=== PATIENT | male | born 1945 | race Caucasian/White ===

== ENCOUNTER → 2018-09-19 | Day surgery (SDC) | payer MEDICARE ==
[2018-09-18 15:47] LABS: BASOPHILS # (AUTO) 0.1 (0.0-0.1); BASOPHILS % 0.9 % (0.0-1.0); EOSINOPHILS # (AUTO) 0.3 (0.0-0.4); HEMATOCRIT 37.3 % (38.2-49.6); HEMOGLOBIN 12.2 g/dL (14.0-18.0); LYMPHOCYTES # (AUTO) 1.1 (1.0-3.2); LYMPHOCYTES % 20.7 % (18.0-39.1); MEAN CORPUSCULAR HEMOGLOBIN 30.6 pg (28-32); MEAN CORPUSCULAR HGB CONC 32.7 g/dL (31-35); MEAN CORPUSCULAR VOLUME 93.5 fL (81-99); MONOCYTES # (AUTO) 0.6 (0.2-0.8); NEUTROPHILS # (AUTO) 3.3 (2.1-6.9); NEUTROPHILS % 61.8 % (38.7-80.0); PLATELET COUNT 228 x10e3/uL (140-360); RED BLOOD COUNT 3.99 x10e6/uL (4.3-5.7); RED CELL DISTRIBUTION WIDTH 12.2 % (11.7-14.4)
[~2018-09-19] MED LIST: AMIODARONE HCL200 MG PO; CITALOPRAM HBR20 MG PO; FENTANYL CITRATE/PF 100MCG/2 ML INJ ONE; NORCO 10-325 T1 EACH PO; PLAVIX75 MG PO; PRAVASTATIN SOD40 MG PO; PROPOFOL IV EMULSION 10 MG/ML 50 ML VIAL ONE; TRAZODONE HCL50 MG PO
--- OUTSIDE RECORDS SUMMARY | 2018-09-19 05:29 | XMS REPORT | Clinical Summary ---
Author Author [employer] Organization [employer] Address Unknown Phone Unavailable Care Team Providers Care Art Dealer Name Role Phone Rodrigue Hitchcock MD PCP Allergies No Known Allergies Medications End Date Status Medication Sig Dispensed Refills Start Date Active levothyroxine (SYNTHROID, TAKE ONE (1) 1 LEVOXYL) 150 mcg tablet TABLET(S) BY 9 MOUTH IN THE MORNING ON AN EMPTY STOMACH. Active oxyCODone-acetaminophen TAKE ONE (1) 0 (PERCOCET) 10-325 mg per TABLET(S) BY 9 tablet MOUTH EVERY SIX HOURS NEEDED FOR PAIN. Active pravastatin (PRAVACHOL) TAKE ONE (1) 0 40 MG tablet TABLET(S) BY 9 MOUTH ONCE A DAY. Active clopidogrel (PLAVIX) 75 Take 75 mg by 0 mg tablet mouth daily. Active folic acid (FOLVITE) 1 MG Take 1 mg by 0 tablet mouth daily. Active citalopram (CeleXA) 40 MG Take 40 mg by 0 tablet mouth daily. Active methotrexate 2.5 MG Take by mouth 0 tablet every 12 (twelve) hours for 3 (three) doses only each week. Active traZODone (DESYREL) 50 MG Take 50 mg by 0 tablet mouth nightly. Active amIODarone (PACERONE) 200 Take 200 mg 0 MG tablet by mouth daily. Active Problems Problem Noted Date Oropharyngeal dysphagia 08/21/2018 Esophageal dysphagia 08/21/2018 Encounters Care Team Description Date Type Specialty Adonay Mcpherson MD Oropharyngeal dysphagia (Primary Dx); Esophageal dysphagia 08/21/2018 Office Visit Otolaryngology Adonay Mcpherson MD Oropharyngeal dysphagia 08/10/2018 Hospital Radiology Encounter Adonay Mcpherson MD Oropharyngeal dysphagia (Primary Dx) 08/03/2018 Office Visit Otolaryngology after 09/18/2017 Social History Date Tobacco Use Types Packs/Day Years Used Never Smoker Smokeless Tobacco: Never Used Alcohol Use Drinks/Week oz/Week Comments No Alcohol Habits Answer Date Recorded How often do you have a drink containing alcohol? Never 08/03/2018 How many drinks containing alcohol do you have on Not asked a typical day when you are drinking? How often do you have six or more drinks on one Not asked occasion? Sex Assigned at Date Recorded Not on file Industry Job Start Date Occupation Not on file Not on file Not on file Travel End Travel History Travel Start No recent travel history available. Last Filed Vital Signs Time Taken Vital Sign Reading - Blood Pressure - - Pulse - - Temperature - - Respiratory Rate - - Oxygen Saturation - - Inhaled Oxygen - Concentration 08/21/2018 9:11 AM CDT Weight 86.6 kg (191 lb) 08/21/2018 9:11 AM CDT Height 177.8 cm (5' 10") 08/21/2018 9:11 AM CDT Body Mass Index 27.41 Plan of Treatment Health Maintenance Due Date Last Done Comments COLON CANCER SCREENING 1996 SHINGLES VACCINES (#1) 1996 65+ PNEUMOCOCCAL VACCINE 09/28/2011 (1 of 2 - PCV13) PNEUMOCOCCAL 09/28/2011 POLYSACCHARIDE VACCINE AGE 65 AND OVER INFLUENZA VACCINE 12/06/2018 Procedures Comments Procedure Name Priority Date/Time Associated Diagnosis FL MODIFIED BARIUM Routine 08/10/2018 Oropharyngeal dysphagia SWALLOW 10:36 AM CDT after 09/18/2017 Results * FL Modified Barium Swallow (08/10/2018 10:36 AM CDT) Narrative Performed At EXAMINATION:[place] MODIFIED BARIUM SWALLOW [facility] CLINICAL HISTORY:R13.12 Dysphagiaoropharyngeal phase, Dysphagia after XRT. COMPARISON:None. FINDINGS: The patient swallowed varying consistencies of barium under direct lateral fluoroscopic evaluation. The study was performed in conjunction with speech pathology. IMPRESSION: The patient swallowed each consistency without evidence of laryngeal penetration or aspiration. There is some mild flash penetration with straw drinking of ultra thin liquids. There was occasional pooling of contrast in the mid esophagus which cleared with a repeat water bolus. Please refer to Speech Pathology report for further details. Fluoroscopy time:3.5 minutes number of fluoroscopic images obtained: 1 [id number] Procedure Note Hm Interface, Radiology Results Incoming - 08/10/2018 10:51 AM CDT EXAMINATION: FL MODIFIED BARIUM SWALLOW CLINICAL HISTORY: R13.12 Dysphagia oropharyngeal phase, Dysphagia after XRT. COMPARISON: None. FINDINGS: The patient swallowed varying consistencies of barium under direct lateral fluoroscopic evaluation. The study was performed in conjunction with speech pathology. IMPRESSION: The patient swallowed each consistency without evidence of laryngeal penetration or aspiration. There is some mild flash penetration with straw drinking of ultra thin liquids. There was occasional pooling of contrast in the mid esophagus which cleared with a repeat water bolus. Please refer to Speech Pathology report for further details. Fluoroscopy time: 3.5 minutes number of fluoroscopic images obtained: 1 [id number] Performing Organization Address [facility] Phone [facility] [address] [place] [address] after 09/18/2017 Insurance Payer Benefit Subscriber ID Type Phone Address Plan / Group [employer] xxxxxxxxx [facility] Advance Directives Patient has advance care planning documents on file. For more information, balta almanzar contact: Kevin Colin [address] [place] [address]
--- OUTSIDE RECORDS SUMMARY | 2018-09-19 05:29 | XMS REPORT ---
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 Active Assessment Paroxysmal atrial fibrillation I48.0 Active Problem 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 Active Problem Atherosclerosis of [place] coronary artery, angina presence unspecified, unspecified whether [place] or transplanted heart I25.10 Active Problem Paroxysmal atrial fibrillation I48.0 Active Problem Hypothyroidism, unspecified type E03.9 Active Assessment Atherosclerosis of [place] artery of both lower extremities with intermittent claudication I70.213 Active Problem Post PTCA Z98.61 Active Problem Atheroscler-limb&claudic I70.219 Active Medications No Known Medications Results No Known Results Summary Purpose [employer] Submission
--- OUTSIDE RECORDS SUMMARY | 2018-09-19 05:29 | XMS REPORT ---
Author Author Rain Rodrigez Organization [employer] Address Unknown Phone Unavailable Care Team Providers Care Sap Pp Consultant Name Role Phone Rain Rodrigez CP Unavailable Allergies, Adverse Reactions, Alerts Substance Reaction Event Type N.K.D.A. 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 Active Problem Atherosclerosis of [place] coronary artery, angina presence unspecified, unspecified whether [place] or transplanted heart I25.10 Active Problem Paroxysmal atrial fibrillation I48.0 Active Problem Hypothyroidism, unspecified type E03.9 Active Assessment 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 Active Problem Post PTCA Z98.61 Active Problem Atheroscler-limb&claudic I70.219 Active Medications Medication Code System Code Instructions Start Date End Date Status Dosage Promethazine HCl [facility] 79738366409 25 MG Orally every 12 hrs Active 1 tablet as needed Omeprazole ND 57344581046 20 MG Orally Once a day Active 1 tablet Fluconazole ND 81890480992 150 MG Orally Active 1 tablet Pravastatin Sodium ND 62225704248 40 MG Orally Once a day Active 1 tablet Trazodone HCl ND 81083149584 50 MG Orally Once a day Active 1 tablet at bedtime as needed Levothyroxine Sodium ND 68626348316 75 MCG Orally Once a day Active 1 tablet Metoclopramide HCl ND 56826755653 5 MG Orally Active not defined Clopidogrel Bisulfate ND 51793932526 75 MG Orally Once a day Active 1 tablet Citalopram NDC 0 40 mg Active qd Xarelto [facility] 96946600148 20 MG Orally Once a day Active 1 tablet with food Ondansetron ND 68510813430 8 MG Orally Active not defined Amiodarone HCl [facility] 47238692973 200 MG Orally Once a day Active 1 tablet Hydrocodone-Acetaminophen [facility] 98003142872 10-325 MG Orally every 6 hrs Active 1 tablet as needed Vital Signs Date/Time: November 21, 2016 BMI 35.15 Index Weight 180 lbs Height 5'11 in Cardiac Monitoring Heart Rate 60 /min Blood Pressure Diastolic 72 mm Hg Blood Pressure Systolic 116 mm Hg Results No Known Results Summary Purpose [employer]Works Submission
--- OUTSIDE RECORDS SUMMARY | 2018-09-19 05:29 | XMS REPORT ---
Author Author Rain Rodrigez Organization [employer] Address Unknown Phone Unavailable Care Team Providers Care Panel Installer Name Role Phone Rain Rodrigez CP Unavailable Allergies, Adverse Reactions, Alerts Substance Reaction Event Type N.K.D.A. 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 Active Problem Atherosclerosis of [place] coronary artery, angina presence unspecified, unspecified whether [place] or transplanted heart I25.10 Active Problem Paroxysmal atrial fibrillation I48.0 Active Problem Hypothyroidism, unspecified type E03.9 Active Assessment Atherosclerosis of [place] coronary artery, angina presence unspecified, unspecified whether [place] or transplanted heart I25.10 Active Problem Post PTCA Z98.61 Active Problem Atheroscler-limb&claudic I70.219 Active Assessment Atheroscler-limb&claudic I70.219 Active Assessment Other symptoms involving cardiovascular system R09.89 Active Assessment Depression, unspecified depression type F32.9 Active Assessment Hypothyroidism, unspecified type E03.9 Active Medications Medication Code System Code Instructions Start Date End Date Status Dosage Metoclopramide HCl [facility] 05283401708 5 MG Orally Active not defined Levothyroxine Sodium ND 82993411372 75 MCG Orally Once a day Active 1 tablet Trazodone HCl ND 08891916904 50 MG Orally Once a day Active 1 tablet at bedtime as needed Citalopram NDC 0 40 mg Active qd Hydrocodone-Acetaminophen ND 44110969746 10-325 MG Orally every 6 hrs Active 1 tablet as needed Ondansetron ND 12523832515 8 MG Orally Active not defined Omeprazole ND 76939717249 20 MG Orally Once a day Active 1 tablet Clopidogrel Bisulfate ND 76367880852 75 MG Orally Once a day Active 1 tablet Amiodarone HCl [facility] 55397698406 200 MG Orally Once a day Active 1 tablet Promethazine HCl [facility] 18334131873 25 MG Orally every 12 hrs Active 1 tablet as needed Fluconazole [facility] 95951843673 150 MG Orally Active 1 tablet Pravastatin Sodium [facility] 26874064914 40 MG Orally Once a day Active 1 tablet Vital Signs Date/Time: August 01, 2016 BMI 34.17 Index Weight 175 lbs Height 5'11 in Cardiac Monitoring Heart Rate 60 /min Blood Pressure Diastolic 68 mm Hg Blood Pressure Systolic 120 mm Hg Results No Known Results Summary Purpose eClinicalWorks Submission
--- OUTSIDE RECORDS SUMMARY | 2018-09-19 05:29 | XMS REPORT ---
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
--- OUTSIDE RECORDS SUMMARY | 2018-09-19 05:29 | XMS REPORT ---
Author Author Rain Rodrigez Organization [employer] Address Unknown Phone Unavailable Care Team Providers Care Cook Chef Name Role Phone Rain Rodrigez CP Unavailable Allergies, Adverse Reactions, Alerts Substance Reaction Event Type N.K.D.A. 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 Active Problem Atherosclerosis of [place] coronary artery, angina presence unspecified, unspecified whether [place] or transplanted heart I25.10 Active Problem Paroxysmal atrial fibrillation I48.0 Active Problem Hypothyroidism, unspecified type E03.9 Active Assessment 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 Active Problem Post PTCA Z98.61 Active Problem Atheroscler-limb&claudic I70.219 Active Medications Medication Code System Code Instructions Start Date End Date Status Dosage Amiodarone HCl [facility] 42840213692 200 MG Orally Once a day Active 1 tablet Trazodone HCl [facility] 62324484352 50 MG Orally Once a day Active 1 tablet at bedtime as needed Omeprazole ND 57981888125 20 MG Orally Once a day Active 1 tablet Xarelto [facility] 29393539027 20 MG Orally Once a day August 15, 2016 Active 1 tablet with food Citalopram ND 0 40 mg Active qd Promethazine HCl ND 13612429197 25 MG Orally every 12 hrs Active 1 tablet as needed Pravastatin Sodium ND 62196896655 40 MG Orally Once a day Active 1 tablet Levothyroxine Sodium [facility] 42502963290 75 MCG Orally Once a day Active 1 tablet Metoclopramide HCl [facility] 84221668463 5 MG Orally Active not defined Hydrocodone-Acetaminophen [facility] 69777674168 10-325 MG Orally every 6 hrs Active 1 tablet as needed Ondansetron ND 17983173386 8 MG Orally Active not defined Clopidogrel Bisulfate NDC 17483954312 75 MG Orally Once a day Active 1 tablet Fluconazole [facility] 91743112592 150 MG Orally Active 1 tablet Vital Signs Date/Time: August 15, 2016 BMI 34.17 Index Weight 175 lbs Height 5'11 in Cardiac Monitoring Heart Rate 66 /min Blood Pressure Diastolic 68 mm Hg Blood Pressure Systolic 122 mm Hg Results No Known Results Summary Purpose [employer]ClinicalWorks Submission
--- OUTSIDE RECORDS SUMMARY | 2018-09-19 05:29 | XMS REPORT ---
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 Medications Medication Code System Code Instructions Start Date End Date Status Dosage Citalopram Hydrobromide ND 33828042973 40 MG Orally Once a day Active 0.5 tablet Prednisone Taper ND 95999809287 5mg Feb 09, 2018 Active 3 tablets for 5 days, 2 tablets for 5 days and then 1 tablet for 5 days Trazodone HCl ND 83812797341 50 MG Orally Once a day Active 1 tablet at bedtime as needed Amiodarone HCl ND 83729509501 200 MG Orally Once a day Active 1 tablet Hydrocodone-Acetaminophen ND 17064143728 7.5-325 MG Orally every 6 hrs Active 1 tablet as needed Folic Acid ND 53545572678 1 MG Orally Once a day Feb 27, 2018 September 29, 2018 Active 1 tablet Methotrexate (Anti-Rheumatic) NDC 0 2.5 MG Orally qwkly Feb 27, 2018 Active 8 tabs altogehter Pravastatin Sodium ND 30505267279 40 MG Orally Once a day Active 1 tablet Plavix ND 69525179968 75 MG Orally Once a day Active 1 tablet Vital Signs Date/Time: Apr 02, 2018 BMI 27 Index Weight 191 lbs Height 71 in Temperature 95.5 F Cardiac Monitoring Heart Rate 76 /min Blood Pressure Diastolic 72 mm Hg Blood Pressure Systolic 130 mm Hg Results No Known Results Summary Purpose eClinicalWorks Submission
--- OUTSIDE RECORDS SUMMARY | 2018-09-19 05:29 | XMS REPORT ---
Author Author Marie Andre [facility] eClinical[employer] Address Unknown Phone Unavailable Care Team Providers Care Cement Mason Name Role Phone Marie Andre CP Unavailable Allergies, Adverse Reactions, Alerts Substance Reaction Event Type demerol stomach upset Non Drug Allergy Problems Problem Type Condition Code Onset Dates Condition Status Assessment Inflammatory arthritis M19.90 Active Problem Inflammatory arthritis M19.90 Active Medications Medication Code System Code Instructions Start Date End Date Status Dosage Citalopram Hydrobromide [facility] 48234850707 40 MG Orally Once a day Active 0.5 tablet Amiodarone HCl [facility] 52646983253 200 MG Orally Once a day Active 1 tablet Plavix [facility] 14565846008 75 MG Orally Once a day Active 1 tablet Pravastatin Sodium [facility] 55180215872 40 MG Orally Once a day Active 1 tablet Trazodone HCl ND 66066884676 50 MG Orally Once a day Active 1 tablet at bedtime as needed Hydrocodone-Acetaminophen ND 24725958147 7.5-325 MG Orally every 6 hrs Active 1 tablet as needed Prednisone Taper ND 63126248581 5mg Feb 09, 2018 Active 3 tablets for 5 days, 2 tablets for 5 days and then 1 tablet for 5 days Vital Signs Date/Time: Feb 09, 2018 BMI 26.65 Index Weight 191.1 lbs Height 71 in Temperature 97.4 F Cardiac Monitoring Heart Rate 74 /min Blood Pressure Diastolic 70 mm Hg Blood Pressure Systolic 122 mm Hg Results No Known Results Summary Purpose eClinicalWorks Submission
--- OUTSIDE RECORDS SUMMARY | 2018-09-19 05:29 | XMS REPORT | Continuity of Care Document ---
Author Author [facility] Interface Address Unknown Phone Unavailable Problems Problem Status Onset Date Classification Date Reported Comments Source Other symptoms involving cardiovascular system Active Diagnosis 03/21/2017 med [facility]amed 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 heart failure Active Problem 03/21/2017 Ahmed Ahmed Paroxysmal atrial fibrillation Active Diagnosis 03/21/2017 Ahmed med Atherosclerosis of [place] coronary artery, angina presence unspecified, unspecified whether [place] or transplanted heart Active Problem 03/21/2017 Ahmed Veramed Hypothyroidism, unspecified type Active Problem 03/21/2017 med med Atherosclerosis of [place] artery of both lower extremities with intermittent claudication Active Diagnosis 03/21/2017 [facility] Ahmed Post PTCA Active Problem 03/21/2017 med [facility]amed Atheroscler-limb&claudic Active Problem 03/21/2017 med [facility] Inflammatory arthritis Active Problem 04/06/2018 Noe Sanford Depression, unspecified depression type [facility] HLA-B27 spondyloarthropathy Active Problem 04/06/2018 Noe Sanford Knee pain, left Active Problem 04/06/2018 Noe Sanford Medications Medication Details Route Status Patient Instructions Ordering Provider Order Date Source Folic Acid 1 tablet Orally Active 1 MG Orally Once a day Jes 02/27/2018 Noe Sanford Methotrexate (Anti-Rheumatic) 8 tabs altogehter Orally Active 2.5 MG Orally qwkly Jes 02/27/2018 Noe Sanford Prednisone Taper 3 tablets for 5 days, 2 tablets for 5 days and then 1 tablet for 5 days NA Active 5mg Jes 02/09/2018 Noe Sanford Xarelto 1 tablet with food Orally Active 20 MG Orally Once a day [facility] 08/15/2016 [facility] Metoclopramide HCl not defined Orally Active 5 MG Orally [facility] Levothyroxine Sodium 1 tablet Orally Active 75 MCG Orally Once a day [facility] Citalopram qd NA Active 40 mg [facility] Hydrocodone-Acetaminophen 1 tablet as needed Orally Active 10- 325 MG Orally every 6 hrs [facility] Ondansetron not defined Orally Active 8 MG Orally [facility] Omeprazole 1 tablet Orally Active 20 MG Orally [facility] Clopidogrel Bisulfate 1 tablet Orally Active 75 MG Orally Once a day [facility] Amiodarone HCl 1 tablet Orally Active 200 MG Orally Once a day [facility] Promethazine HCl 1 tablet as needed Orally Active 25 MG Orally every 12 hrs [facility] Flu[facility] 1 tablet Orally Active 150 MG Orally [facility] Xarelto 1 tablet with food Orally Active 20 MG Orally [facility] a day [facility] Citalopram Hydrobromide 0.5 tablet Orally Active 40 MG Orally Once a day Jes Noe Sanford Trazodone HCl 1 tablet at bedtime as needed Orally Active 50 MG Orally Once a day Jes Noe Mora Amiodarone HCl 1 tablet Orally Active 200 MG Orally Once a day Jes Noe Sanford Hydrocodone-Acetaminophen 1 tablet as needed Orally Active 7.5- 325 MG Orally every 6 hrs Jes Noe Sanford Pravastatin Sodium 1 tablet Orally Active 40 MG Orally Once a day Jes Noe Mora Plavix 1 tablet Orally Active 75 MG Orally Once a day Jes Noe Sanford Allergies, Adverse Reactions, Alerts Substance Category Reaction Severity Reaction type Status Date Reported Comments Source N.K.D.A. Adverse Reaction Info Not Available Adverse Reaction Active 11/21/2016 Rain Rodrigez demerol Adverse Reaction stomach upset Adverse Reaction Active 04/02/2018 Noe Sanford Immunizations Immunization Date Given Site Status Last Updated Comments Source Results Order Name Results Value Reference Range Date Interpretation Comments Source Vital Signs Vital Sign Value Date Comments Source Weight 191 04/02/2018 Noe Sanford Height 71 04/02/2018 Noe Sanford Temperature Oral (F) 95.5 F 04/02/2018 Noe Sanford Heart Rate 76 04/02/2018 Noe Sanford Diastolic (mm Hg) 72 04/02/2018 Noe Sanford Systolic (mm Hg) 130 04/02/2018 Noe Sanford Weight 191.1 02/09/2018 Noe Sanford Height 71 02/09/2018 Noealtagracia Sanford Temperature Oral (F) 97.4 F 02/09/2018 Noe Sanford Heart Rate 74 02/09/2018 Noe Sanford Diastolic (mm Hg) 70 02/09/2018 Noe Sanford Systolic (mm Hg) 122 02/09/2018 Noe Sanford Weight 180 11/21/2016 Ahmed Ahmed Heart Rate 60 11/21/2016 Ahmed Ahmed Diastolic (mm Hg) 72 11/21/2016 Ahmed Ahmed Systolic (mm Hg) 116 11/21/2016 Ahmed Ahmed Weight 175 08/15/2016 Ahmed Ahmed Heart Rate 66 08/15/2016 Ahmed Ahmed Diastolic (mm Hg) 68 08/15/2016 Ahmed Ahmed Systolic (mm Hg) 122 08/15/2016 Ahmed Ahmed Weight 175 08/01/2016 Ahmed Ahmed Heart Rate 60 08/01/2016 Ahmed Ahmed Diastolic (mm Hg) 68 08/01/2016 Ahmed Ahmed Systolic (mm Hg) 120 08/01/2016 Ahmed Ahmed Encounters Location Location Details Encounter Type Encounter Number Reason For Visit Attending Provider ADM Date DC Date Status Source Procedures Procedure Code Date Perfomer Comments Source
--- OUTSIDE RECORDS SUMMARY | 2018-09-19 05:29 | XMS REPORT ---
Author Emiliano Cuello Organization [employer] Address Unknown Phone Unavailable Care Team Providers Care Powertrain Calibration Engineer Name Role Phone Emiliano Sanford CP Unavailable Allergies No Known Allergies Problems Problem Type Condition Code Onset Dates Condition Status Problem Inflammatory arthritis M19.90 Active Medications No Known Medications Results No Known Results Summary Purpose eClinicalWorks Submission
--- OUTSIDE RECORDS SUMMARY | 2018-09-19 05:29 | XMS REPORT ---
Author Author Marie Andre [facility] eClinicalWorks Address Unknown Phone Unavailable Care Team Providers Care Box Strapper Name Role Phone Marie Andre Unavailable Allergies No Known Allergies Problems Problem Type Condition Code Onset Dates Condition Status Problem Inflammatory arthritis M19.90 Active Medications Medication Code System Code Instructions Start Date End Date Status Dosage Methotrexate (Anti-Rheumatic) NDC 0 2.5 MG Orally Feb 27, 2018 Active take 4 tablets once a week, take 6 tablets once a week, take 8 tablets once a week Folic Acid NDC [id number] 1 MG Orally Once a day Feb 27, 2018 Active 1 tablet Results No Known Results Summary Purpose eClinicalWorks Submission
[2018-09-19 08:20] VITALS: BP 126/78
== END | disposition home or self-care (01) ==
LOC: OR 05:26
PROVIDERS: ATTEND Internal Medicine Gastroenterology
DX: Q39.4 Esophageal web (principal); K29.50 Unspecified chronic gastritis without bleeding; K22.8 Other specified diseases of esophagus; T18.2XXA Foreign body in stomach, initial encounter; K59.03 Drug induced constipation; E66.3 Overweight; Z71.3 Dietary counseling and surveillance; I44.0 Atrioventricular block, first degree; M06.9 Rheumatoid arthritis, unspecified; G47.33 Obstructive sleep apnea (adult) (pediatric); I48.91 Unspecified atrial fibrillation; E78.5 Hyperlipidemia, unspecified; I34.1 Nonrheumatic mitral (valve) prolapse; M19.90 Unspecified osteoarthritis, unspecified site; X58.XXXA Exposure to other specified factors, initial encounter; M54.5 Low back pain; Z88.6 Allergy status to analgesic agent; Z88.8 Allergy status to other drugs, medicaments and biological substances; Z01.810 Encounter for preprocedural cardiovascular examination; Z01.812 Encounter for preprocedural laboratory examination; Z79.02 Long term (current) use of antithrombotics/antiplatelets; Z68.25 Body mass index [BMI] 25.0-25.9, adult; Z95.5 Presence of coronary angioplasty implant and graft; Z92.3 Personal history of irradiation; Z85.819 Personal history of malignant neoplasm of unspecified site of lip, oral cavity, and pharynx
CPT/HCPCS: 36415; 43239; 43248; 85025; 88305; 88312; 93005; J2704; 43235; 43450